=== PATIENT | male | born 1975 | race Caucasian/White ===

== ENCOUNTER 2018-04-01 21:18 | Emergency (ER) | payer OTHER ==
[~2018-04-01] VITALS: Ht 172.7 cm; Wt 131.5 kg
[2018-04-01 21:36] VITALS: BP_SYST 127
[2018-04-01] MEDS ORDERED: IBUPROFEN 800 MG TABLET PO ONE (23:30)
[2018-04-01] MEDS ORDERED: IPRATROPIUM BROM 0.5 MG/2.5 ML VIAL.NEB (ATROVENT) IH ONE (23:30)
[2018-04-01] MEDS ORDERED: AMOXICILLIN 500 MG CAPSULE PO ONE (23:30)
[2018-04-01] MEDS ORDERED: LevALBUTEROL HCL 1.25 MG/0.5 ML *CONC.* VIAL.NEB (XOPENEX CONC.) INH ONE (23:30)
[2018-04-02 00:05] VITALS: BP_SYST 120
== END 2018-04-02 00:05 | disposition home or self-care (01) ==
LOC: SED 21:18
DX: H60.91 Unspecified otitis externa, right ear (principal); H66.91 Otitis media, unspecified, right ear; R03.0 Elevated blood-pressure reading, without diagnosis of hypertension; J45.909 Unspecified asthma, uncomplicated; Z88.5 Allergy status to narcotic agent
CPT/HCPCS: 94640; 99283; J7612